=== PATIENT | male | born 1955 | race Hispanic/Latino ===

== ENCOUNTER → 2021-02-06 | Outpatient (CLI) | payer OTHER | END | disposition home or self-care (01) | LOC: RAH 10:27 | PROVIDERS: ATTEND Podiatrist | DX: I80.202 Phlebitis and thrombophlebitis of unspecified deep vessels of left lower extremity (principal); M67.02 Short Achilles tendon (acquired), left ankle; L90.9 Atrophic disorder of skin, unspecified; M77.42 Metatarsalgia, left foot; M20.22 Hallux rigidus, left foot; I87.2 Venous insufficiency (chronic) (peripheral) | CPT/HCPCS: 93971 ==

== ENCOUNTER → 2024-12-10 | Outpatient (CLI) | payer OTHER ==
[~2024-12-10] VITALS: Ht 172.7 cm; Wt 91.0 kg
[~2024-12-10] MED LIST: ALFU10TA46 PO; ASPI-1005 PO; CHOL200059 PO; CYAN-52 PO; OLME-30 PO; ROSU10TA72 PO; TADA5TAB5 PO
--- NOTE | 2024-12-10 10:35 | EKG ---
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
[2024-12-10 10:43] VITALS: BP 150/70; PULSE 52; RESP 16; TEMP 98.1
[2024-12-10 11:04] LABS: APPEARANCE,URINE CLEAR (CLEAR); BILIRUBIN,URINE NEGATIVE (NEGATIVE); GLUCOSE, URINE (UA) NEGATIVE (NEGATIVE); KETONES,URINE NEGATIVE (NEGATIVE); LEUKOCYTE ESTERASE ,URINE NEGATIVE Leu/uL (NEGATIVE); NITRATE,URINE NEGATIVE (NEGATIVE); OCCULT BLOOD,URINE NEGATIVE (NEGATIVE); PROTEIN,URINE NEGATIVE (NEGATIVE); UROBILINOGEN,URINE 0.2 mg/dL (0.2-1.0)
[2024-12-10 11:05] LABS: BASOPHILS # (AUTO) 0.03 K/uL (0.00-0.20); BASOPHILS % (AUTO) 0.5 % (0.0-5.0); EOSINOPHILS # (AUTO) 0.15 K/uL (0.00-0.70); EOSINOPHILS % (AUTO) 2.5 % (0.0-8.0); HEMATOCRIT 40.1 % (42-54); IMMATURE GRANULOCYTE ABSOLUTE 0.01 K/uL (0-1); LYMPHOCYTES # (AUTO) 1.7 K/uL (1.0-4.8); LYMPHOCYTES % (AUTO) 28.3 % (21.0-51.0); MEAN CORPUSCULAR HEMOGLOBIN 30.1 pg (27.0-33.0); MEAN CORPUSCULAR HGB CONC 34.2 g/dL (32.0-36.0); MEAN CORPUSCULAR VOLUME 88.1 fL (79-99); MONOCYTES # (AUTO) 0.4 K/uL (0.1-1.0); MONOCYTES % (AUTO) 6.9 % (3.0-13.0); NEUTROPHILS # (AUTO) 3.7 K/uL (1.8-7.7); NEUTROPHILS % (AUTO) 61.6 % (40.0-77.0); PLATELET COUNT (AUTO) 239 K/uL (130-400); RED BLOOD CELL COUNT(AUTO) 4.55 MIL/uL (4.50-6.20); RED CELL DISTRIBUTION WIDTH 12.7 % (11.0-15.5); WHITE BLOOD COUNT (AUTO) 5.9 K/uL (4.8-10.8)
[2024-12-10 11:07] LABS: ADD UA MICROSCOPIC NO; COLOR,URINE STRAW (YELLOW)
[2024-12-10 11:10] LABS: CREATININE 1.2 mg/dL (0.5-1.3); POTASSIUM 4.3 mmol/L (3.5-5.1)
[2024-12-10 11:30] LABS: INR 1.02 (0.85-1.15); PROTHROMBIN TIME 10.8 SEC (9.6-11.6)
[2024-12-10 11:31] LABS: PARTIAL THROMBOPLASTIN TIME 27.2 SEC (26.3-35.5)
[2024-12-10 11:42] LABS: B-TYPE NATRIURETIC PEPTIDE 17 pg/mL (0-100)
--- NOTE | 2024-12-10 16:42 | HMCIMG ---
CHEST 1VW HISTORY: Preop COMPARISON: None FINDINGS: A frontal projection of the chest was obtained. No acute pulmonary infiltrates is seen. The heart is normal in size. Prominent interstitial markings are seen. Degenerative changes are seen. No evidence of aortic calcification is seen. IMPRESSION: 1. No acute pulmonary infiltrate is seen.
== END ==
LOC: DAH 09:48 → EDSTATUS 12:00
PROVIDERS: ATTEND Internal Medicine Cardiovascular Disease
DX: Z01.818 Encounter for other preprocedural examination (principal); R94.39 Abnormal result of other cardiovascular function study; I10 Essential (primary) hypertension; E78.00 Pure hypercholesterolemia, unspecified; N40.0 Benign prostatic hyperplasia without lower urinary tract symptoms; Z79.82 Long term (current) use of aspirin; Z79.01 Long term (current) use of anticoagulants; Z83.3 Family history of diabetes mellitus; Z88.0 Allergy status to penicillin; Z79.899 Other long term (current) drug therapy; Z98.890 Other specified postprocedural states
CPT/HCPCS: 36415; 71045; 80048; 81003; 83880; 85025; 85610; 85730; 93005

== ENCOUNTER 2024-12-26 08:11 | Day surgery (SDC) | payer OTHER ==
[2024-12-21 11:21] LABS: BASOPHILS # (AUTO) 0.03 K/uL (0.00-0.20); BASOPHILS % (AUTO) 0.4 % (0.0-5.0); EOSINOPHILS # (AUTO) 0.11 K/uL (0.00-0.70); EOSINOPHILS % (AUTO) 1.6 % (0.0-8.0); HEMATOCRIT 42.6 % (42-54); IMMATURE GRANULOCYTE ABSOLUTE 0.01 K/uL (0-1); LYMPHOCYTES # (AUTO) 1.2 K/uL (1.0-4.8); LYMPHOCYTES % (AUTO) 17.4 % (21.0-51.0); MEAN CORPUSCULAR HEMOGLOBIN 30.1 pg (27.0-33.0); MEAN CORPUSCULAR HGB CONC 33.8 g/dL (32.0-36.0); MEAN CORPUSCULAR VOLUME 88.9 fL (79-99); MONOCYTES # (AUTO) 0.4 K/uL (0.1-1.0); NEUTROPHILS # (AUTO) 5.3 K/uL (1.8-7.7); NEUTROPHILS % (AUTO) 75.5 % (40.0-77.0); PLATELET COUNT (AUTO) 227 K/uL (130-400); RED BLOOD CELL COUNT(AUTO) 4.79 MIL/uL (4.50-6.20); RED CELL DISTRIBUTION WIDTH 12.4 % (11.0-15.5)
[2024-12-21 11:25] VITALS: BP 161/69; PULSE 51; RESP 16; TEMP 99.1
[2024-12-21 11:25] LABS: APPEARANCE,URINE CLEAR (CLEAR); BILIRUBIN,URINE NEGATIVE (NEGATIVE); COLOR,URINE COLORLESS (YELLOW); GLUCOSE, URINE (UA) NEGATIVE (NEGATIVE); KETONES,URINE NEGATIVE (NEGATIVE); LEUKOCYTE ESTERASE ,URINE NEGATIVE Leu/uL (NEGATIVE); NITRATE,URINE NEGATIVE (NEGATIVE); OCCULT BLOOD,URINE NEGATIVE (NEGATIVE); PH,URINE 5.5 (5.0-8.0); PROTEIN,URINE NEGATIVE (NEGATIVE); UROBILINOGEN,URINE 0.2 mg/dL (0.2-1.0)
[2024-12-21 11:33] LABS: INR 1.01 (0.85-1.15); PROTHROMBIN TIME 10.7 SEC (9.6-11.6)
[2024-12-21 11:34] LABS: ADD UA MICROSCOPIC NO; CREATININE 1.3 mg/dL (0.5-1.3); POTASSIUM 4.1 mmol/L (3.5-5.1)
[2024-12-21 11:35] LABS: PARTIAL THROMBOPLASTIN TIME 28.2 SEC (26.3-35.5)
[2024-12-21 12:00] LABS: B-TYPE NATRIURETIC PEPTIDE 42 pg/mL (0-100)
--- NOTE | 2024-12-24 07:24 | EKG ---
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
--- NOTE | 2024-12-24 09:59 | NUR ---
RE: LABS REPORTED BMP RESULTS TO DEBORAH MACDONALD NP. OK TO PROCEED AND HAVE PATIENT HYDRATE TODAY. CALLED PATIENT AND INSTRUCTED HIM TO HYDRATE TODAY, PATIENT VERBALIZED UNDERSTANDING.
[2024-12-26] VITALS (13 sets, daily range): BP systolic 124–155; BP diastolic 59–81; PULSE 48–58; RESP 14–18; TEMP 97.1–207.1
[~2024-12-26] VITALS: Ht 172.7 cm; Wt 91.6 kg
[2024-12-26] MEDS: 0.9%NACL 1000ML 1,000 ML IV SCH (11:13)
[2024-12-26] MEDS ORDERED: IOHEXOL 350 MG/ML 100ML INFUS..BTL IV ONE ×2 (11:39→13:21)
[2024-12-26] MEDS ORDERED: LIDOCAINE HCL 400MG/20ML VIAL ONE (11:39)
[2024-12-26] MEDS ORDERED: IOHEXOL-350 50ML VIAL IV ONE (11:39)
[2024-12-26] MEDS ORDERED: HEParin 10,000 UNIT/10ML (1,000 UNIT/ML) VIAL ONE (11:39)
[2024-12-26] MEDS ORDERED: NITROGLYCERIN 50MG VIAL ONE (11:40)
[2024-12-26] MEDS ORDERED: HEParin-NS 1,000 UNIT/500 ML 1,000 ML IV ONE (11:40)
[2024-12-26] MEDS ORDERED: FENTanyl CITRate PF 50 MCG/1 ML 2ML VIAL ONE (12:09)
[2024-12-26] MEDS ORDERED: MIDAZOLAM HCL 1 MG/ML 2ML VIAL ONE (12:09)
[2024-12-26] MEDS ORDERED: BIVALIRUDIN 250 MG/VIAL IV ONE ×2 (12:18→13:21)
[2024-12-26] MEDS ORDERED: PRASUGREL HCL 10 MG TABLET ONE (13:01)
[2024-12-26] MEDS ORDERED: ASPIRIN 325MG EC TAB PO ONE (13:03)
[2024-12-26] MEDS ORDERED: ATROPINE 1MG SYG IVP ONE (13:31)
[2024-12-26] MEDS ORDERED: 0.9%NACL 1000ML 1,000 ML IV SCH (14:00)
--- NOTE | 2024-12-26 14:15 | NUR ---
assumed care pt in room 7 in no distress resting comfortable
--- NOTE | 2024-12-26 14:21 | PRN ---
DATE OF PROCEDURE: 12/26/2024 PROCEDURE PERFORMED: LEFT HEART CATHETERIZATION, LEFT VENTRICULOGRAM, LEFT AND RIGHT SELECTIVE CORONARY ANGIOGRAM, PTCA AND STENTING OF THE MID LAD WITH A 3.0 X 22 MM MEDTRONIC DELLA FRONTIER LUPILLO, IFR OF MID LAD (0.81), IVUS CHARACTERIZATION OF PLAQUE AND VESSEL DIAMETER, RIGHT COMMON FEMORAL ANGIOGRAM, PERCLOSE SUTURE CLOSURE OF THE RIGHT COMMON FEMORAL ARTERY, AND CONSCIOUS SEDATION SLASHER OPERATOR: Courtney Dominguez MD, [facility] INDICATION: Positive stress test, exertional fatigue. PROCEDURE NOTE: After informed consent was obtained the patient was prepped and draped in the usual sterile fashion. A 6 [place] arterial sheath with hemostatic valve was inserted into the right common femoral artery using ultrasound guidance and micropuncture technique on a front wall 1st pass puncture. This was performed after fluoroscopic identification of bony landmarks to facilitate a more accurate puncture of the right common femoral artery. The arterial sheath was aspirated and flushed. A 6 [place] pigtail catheter was then advanced over a J- tipped guidewire to the ascending aorta and was prolapsed into the left ventricl e. The catheter was aspirated and flushed and pressure measurements were obtained. A left ventriculogram was then performed in a 30 ADAMES projection. A pullback procedure was then performed, and this catheter was removed over a J- tipped guidewire. A 6F JL-4 was then advanced to the ascending aorta over a J-tipped guidewire, was aspirated and flushed, and was used for selective left coronary angiograms in multiple obliquities. A JR-4 was advanced in a similar fashion to the ascending aorta over a J-tipped guidewire and was used for selective right coronary angiograms in multiple obliquities with findings as outlined below. PERCUTANEOUS CORONARY INTERVENTION: A six [place] JL4 guiding catheter provided adequate backup support for the intervention. The Omniwire 0.014 in pressure wire was used to assess the hemodynamic significance of an 85% mid LAD stenosis and demonstrated an IFR of 0.81 (0.89 is significant). Subsequently this wire was difficult to advance to the apical LAD and we chose a Choice polymer tip 0.0143 cm wire which provided good backup support and did facilitate apical wire placement. Subsequently a 3.0 x 22 mm Medtronic [place] drug-eluting stent was deployed at 16 atmospheres with two subsequent 16 atmospheres post deployment dilations to a residual stenosis of-20% with no edge dissection or distal embolization or perforation. A right common femoral angiogram was performed to assess suitability for Perclose suture closure and the Perclose device was deployed in standard fashion. Perclose suture closure was successful without bleeding or hematoma. The patient tolerated the procedure well and was returned to the holding area in stable condition. FINDINGS: LEFT HEART HEMODYNAMICS: Patient's LVEDP prior to LV-gram was 11 mm of mercury and after LV-gram 14 mm of mercury. There was no aortic valve gradient on pullback. LEFT VENTRICULOGRAM: A left ventriculogram in a 30 degree ADAMES projection demonstrated normal LV function and wall motion with an LVEF of 65%. There was no angiographic MR. CORONARY ANGIOGRAM: LEFT MAIN: The left main coronary had 20% tubular ostial tapering with mild ventricularization of the pressure waveform with a six [place] JL4 guiding catheter. LEFT ANTERIOR DESCENDING: There was a 20% proximal LAD stenosis, 30% mid LAD stenosis prior to the diagonal two, and an 85% napkin ring type stenosis just distal to the diagonal two followed by a 40% stenosis. Placing the IFR wire distal to this long plaque demonstrated an IFR of 0.81 (less than 0.89 a significant). The diagonal branch one had a 40% ostial stenosis with the diagonal branch traversing in the distribution of the ramus intermediate region. LEFT CIRCUMFLEX: The left circumflex was nondominant and had a 20% proximal stenosis and a 20% distal stenosis. The OM1 was large and bifurcated and normal. The OM2 was small in the OM3 bifurcated and was large and normal. RAMUS INTERMEDIATE BRANCH: There was a 40% stenosis and a small short diagonal one vessel. RIGHT CORONARY ARTERY: The right coronary artery was dominant and had two tandem 30% stenoses in the mid segment but was otherwise normal as were the PDA and posterolateral branches. IMPRESSION: Normal LV systolic function with LVEF of 65%. No angiographic MR. No aortic stenosis. Single-vessel coronary artery disease with 85% mid LAD stenosis with IFR of 0.81. Successful PTCA and stenting of the mid LAD with a 3.0 x 22 mm Medtronic [place] LUPILLO IVUS guided characterization of plaque and LAD lumen diameter. IFR assessment of hemodynamic significance of the LAD lesion RECOMMENDATION: One year of dual antiplatelet therapy. Aggressive statin therapy to LDL less than 55. Heart healthy diet and lifestyle changes. COMPLICATIONS OF PROCEDURE: None, the patient tolerated the procedure well and was returned to his room in stable condition. HEMOSTASIS: Perclose suture closure was successful without bleeding or hematoma. ESTIMATED BLOOD LOSS: Less than 10 mL. CONTRAST TOTAL: 265 mL. COURTNEY DOMINGUEZ MD Dec 26, 2024 14:21
== END 2024-12-26 17:45 | disposition home or self-care (01) ==
LOC: DAH 08:11
PROVIDERS: ATTEND Internal Medicine Cardiovascular Disease
DX: R94.39 Abnormal result of other cardiovascular function study (principal); I25.118 Atherosclerotic heart disease of native coronary artery with other forms of angina pectoris; I25.83 Coronary atherosclerosis due to lipid rich plaque; I10 Essential (primary) hypertension; E78.00 Pure hypercholesterolemia, unspecified; E66.9 Obesity, unspecified; Z68.30 Body mass index [BMI] 30.0-30.9, adult; Z79.01 Long term (current) use of anticoagulants; Z98.890 Other specified postprocedural states; Z79.899 Other long term (current) drug therapy; Z79.82 Long term (current) use of aspirin
CPT/HCPCS: 80048; 83880; 85025; 85610; 85730; 81003; 36415; 93005; 92978; 93458; 93571; C9600; C1769 ×3; C1887; C1894 ×2; C1874; C1760; C1753; Q9965 ×3; J3010; J3490 ×2; J7030; J2250; J1644; J0583 ×2; Q9967 ×3; A4215; A4222; A4221; A4663; A4216; A4606; A4223 ×3; 99156; 99157; J0461

== ENCOUNTER → 2025-04-23 | Outpatient (CLI) | payer OTHER ==
--- NOTE | 2025-04-24 10:48 | HMCIMG ---
EXAMINATION: NONCONTRAST MRI OF THE LEFT SHOULDER. CLINICAL HISTORY: Left shoulder pain. COMPARISON: None provided. TECHNIQUE: Multiplanar, multisequence MR images of the left shoulder are submitted. FINDINGS: There is type I acromion with no subacromial spur. The coracoclavicular ligament is intact. T there is moderate acromioclavicular joint osteoarthrosis with moderate periosseous synovial thickening. There is mild subacromial-subdeltoid bursitis. The peritendinous soft tissues are normal. Full thickness supraspinatus and anterior infraspinatus 4.5 cm AP tear retracted by 4.3 cm up to glenohumeral joint level. Full thickness 2 cm subscapularis footprint tear retracted by 1.9 cm and is associated with medial subluxation of long head of biceps tendon leading to moderate to advanced intra-articular segment tendinosis. The teres minor tendon is intact without evidence of tendinopathy or tear. There is moderate supraspinatus, infraspinatus and advanced teres minor muscle atrophy with fatty infiltration. Mild degenerative supraspinatus entheseal marrow edema. There is normal bone marrow signal within the shoulder girdle without fracture, avascular necrosis, or osteomyelitis. The labrum is normal in bulk in signal. The glenohumeral joint is intact. Mild joint effusion with fluid extending in subcoracoid bursa and bicipital groove. IMPRESSION: 1. Full-thickness rotator cuff tears involving supraspinatus, anterior infraspinatus (4.5 cm AP, retracted 4.3 cm), and subscapularis (2 cm, retracted 1.9 cm). 2. Medial subluxation of long head of biceps tendon with moderate to advanced tendinosis. 3. Moderate to advanced rotator cuff muscle atrophy with fatty infiltration. /[place]
== END | disposition home or self-care (01) ==
LOC: RAH 12:29
PROVIDERS: ATTEND Orthopaedic Surgery Adult Reconstructive Orthopaedic Surgery
DX: S43.432A Superior glenoid labrum lesion of left shoulder, initial encounter (principal); S43.082A Other subluxation of left shoulder joint, initial encounter; M75.122 Complete rotator cuff tear or rupture of left shoulder, not specified as traumatic; M19.012 Primary osteoarthritis, left shoulder; M62.512 Muscle wasting and atrophy, not elsewhere classified, left shoulder; M75.52 Bursitis of left shoulder; M25.512 Pain in left shoulder; M25.412 Effusion, left shoulder; M67.814 Other specified disorders of tendon, left shoulder; M25.812 Other specified joint disorders, left shoulder; R93.6 Abnormal findings on diagnostic imaging of limbs; X58.XXXA Exposure to other specified factors, initial encounter; Y93.89 Activity, other specified; Y92.89 Other specified places as the place of occurrence of the external cause; Y99.8 Other external cause status
CPT/HCPCS: 73221